=== PATIENT | female | born 1990 | race Hispanic/Latino ===

== ENCOUNTER 2017-06-22 20:43 | Emergency (ER) | payer OTHER ==
[2017-06-22 21:25] LABS: Urine Blood TRACE (NEG); Urine Glucose NEGATIVE (NEG); Urine Protein NEGATIVE (NEG); Urine pH 5.5 (5.0-7.0)
[2017-06-22 21:30] LABS: Absolute Lymphocytes (CBC) 2.5 K/uL (0.7-4.9); Absolute Monocytes 0.6 K/uL (0.1-1.3); Absolute Neutrophil 6.2 K/uL (1.8-8.0); Basophils % 0.5 % (0-1.3); Eosinophils % 0.8 % (0-4.4); Hematocrit 35.7 % (36.0-45.0); Lymphocytes % 26.2 % (15.3-44.8); MCH 23.9 pg (27.0-35.0); MCV 72.8 fL (80-100); MPV 8.1 fL (7.6-11.3); RBC Red Blood Cell Count 4.91 M/uL (3.86-4.86)
--- NOTE | 2017-06-22 21:48 | RAD REPORT ---
EXAM DESCRIPTION: US - Transvaginal OB - 06/22/2017 9:39 pm CLINICAL HISTORY: , vaginal bleeding COMPARISON: None. FINDINGS: A single gestational sac is seen within the uterus. Within the sac is a single pole with crown-rump length measuring 2 mm corresponding to 5 weeks 5 days gestational age. Cardiac activity was not identified, which is considered normal at this gestational age. Small inferiorly located subchorionic bleed is present measuring 6 x 2 mm. The right ovary was not well seen. Left ovary is normal in size, shape and echotexture with normal Do ppler flow. IMPRESSION: Early IUP findings are present.Embryonic cardiac activity is not yet seen, which is stil l considered normal at this early gestational age. Consider followup sonogram in 7-10 days. Small inferiorly located subchorionic bleed.
--- NOTE | 2017-06-22 22:32 | ER ---
Nurse's Notes [facility] Name: Ekta Bull Age: 26 yrs Sex: Female : 1990 Arrival Date: 06/22/2017 Time: 20:44 Bed 15 Private MD: Diagnosis: Threatened Presentation: 06/22 20:49 Presenting complaint: Patient states: Light spotting, pink in color that began today; lp1 noticed when wiping; Light pelvic cramping; Denies any N/V. Transition of care: patient was not received from another setting of care. Onset of symptoms was June 22, 2017. Care prior to arrival: None. 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 - Social history:: Smoking status: Patient/guardian denies using tobacco. Screenin:51 Abuse screen: Denies threats or abuse. Denies injuries from another. Nutritional lp1 screening: No deficits noted. Tuberculosis screening: No symptoms or risk factors identified. Fall Risk None identified. Assessment: 21:00 Obstetrical Assessment: General assessment: awake and alert, skin warm and dry, wh respirations even and unlabored, Patient reports vaginal spotting that started today. General: Appears in no apparent distress. comfortable, Behavior is calm, cooperative, appropriate for age. General: Behavior is calm, cooperative, appropriate for age. Pain: Complains of pain in suprapubic cramps Pain does not radiate. Pain began today. Neuro: Level of Consciousness is awake, alert, obeys commands, Oriented to person, place, time, situation. Cardiovascular: Denies chest pain, Capillary refill < 3 seconds. Respiratory: Airway is patent Respiratory effort is even, unlabored, Respiratory pattern is regular, symmetrical. GI: Abdomen is round non-distended, Abd is soft and non tender. : Reports vaginal spotting that started today. EENT: No signs and/or symptoms were reported regarding the EENT system. Derm: Skin is intact, Skin is pink, warm \T\ dry. normal. Musculoskeletal: Range of motion: intact in all extremities. 22:13 Reassessment: Patient and/or family updated on plan of care and expected duration. Pain ea level reassessed. Patient is alert, oriented x 3, equal unlabored respirations, skin warm/dry/pink. Patient denies pain at this time. 22:48 Reassessment: Patient and/or family updated on plan of care and expected duration. Pain ea level reassessed. Patient is alert, oriented x 3, equal unlabored respirations, skin warm/dry/pink. Discharge instructions given to patient, verbalized understanding of instructions. Vital Signs: 20:50 BP 129 / 70; Pulse 82; Resp 16; Temp 98.5(O); Pulse Ox 100% on R/A; Weight 102.06 kg; lp1 Height 5 ft. 5 in. (165.10 cm); Pain 0/10; 21:07 BP 121 / 60; Pulse 75; Resp 17; Pulse Ox 100% on R/A; wh 22:13 BP 118 / 63; Pulse 70; Resp 18; Pulse Ox 100% on R/A; Pain 0/10; ea 22:48 BP 120 / 68; Pulse 68; Resp 18 S; Temp 98.0(O); Pulse Ox 99% ; Pain 0/10; ea 20:50 Body Mass Index 37.44 (102.06 kg, 165.10 cm) lp1 Vitals: 22:47 Heart Tones 6 weeks . ea ED Course: 20:44 Patient arrived in ED. ds1 20:50 Triage completed. lp1 20:50 Arm band placed on right wrist. lp1 21:00 Janette Leal is Primary Nurse. wh 21:00 Benny Kyle MD is Attending Physician. gs 21:06 Patient has correct armband on for positive identification. Placed in gown. Bed in low wh position. Call light in reach. Side rails up X 1. Pulse ox on. NIBP on. 21:22 Inserted saline lock: 22 gauge in right antecubital area, using aseptic technique. wh Blood collected. 21:38 Ultrasound completed. Patient tolerated well. cy 21:39 Transvaginal OB US In Process Unspecified. EDMS 22:47 No provider procedures requiring assistance completed. IV discontinued, intact, ea bleeding controlled, No redness/swelling at site. Pressure dressing applied. Administered Medications: No medications were administered Point of Care Testing: Urine : 21:06 hCG Reading: Positive; Outcome: 22:31 Discharge ordered by MD. 22:47 Discharged to home ambulatory, with family. ea 22:47 Condition: improved 22:47 Discharge instructions given to patient, Instructed on discharge instructions, follow up and referral plans. medication usage, Demonstrated understanding of instructions, follow-up care, medications, Prescriptions given X 1. 22:53 Patient left the ED. ea Signatures: Dispatcher [employer] [facility] Deedee Bowers ds1 Chika Bermeo RN RN lp1 Ernestina Pruett RN RN ea [place], Winsy Benny Kyle MD MD Aditi Morales Corrections: (The following items were deleted from the chart) 21:06 21:05 Discharged to [facility] 22:49 22:47 Heart Tones pt under 12 weeks . jeremiah daniels 22:52 22:47 Heart Tones pt < 12 weeks . jeremiah daniels
--- NOTE | 2017-06-22 22:32 | EDPHYS ---
Physician Documentation [facility] Name: Ekta Bull Age: 26 yrs Sex: Female : 1990 Arrival Date: 06/22/2017 Time: 20:44 Bed 15 Private MD: ED Physician Benny Kyle HPI: 06/22 21:19 This 26 yrs old Female presents to ER via Ambulatory with complaints of gs Vaginal Bleeding, + Preg <12wks - Spotting. 21:19 The patient presents to the emergency department with vaginal bleeding, that is light. gs The estimated gestational age is 6 weeks. Associated signs and symptoms: Pertinent positives: abdominal pain, vaginal bleeding. The patient has not experienced similar symptoms in the past. 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 - Social history:: Smoking status: Patient/guardian denies using tobacco. ROS: 21:19 All other systems are negative. gs Exam: 21:19 Head/Face: Normocephalic, atraumatic. Eyes: Pupils equal round and reactive to light, gs extra-ocular motions intact. Lids and lashes normal. Conjunctiva and sclera are non-icteric and not injected. Cornea within normal limits. Periorbital areas with no swelling, redness, or edema. ENT: Nares patent. No nasal discharge, no septal abnormalities noted. Tympanic membranes are normal and external auditory canals are clear. Oropharynx with no redness, swelling, or masses, exudates, or evidence of obstruction, uvula midline. Mucous membranes moist. Neck: Trachea midline, no thyromegaly or masses palpated, and no cervical lymphadenopathy. Supple, full range of motion without nuchal rigidity, or vertebral point tenderness. No Meningismus. Chest/axilla: Normal chest wall appearance and motion. Nontender with no deformity. No lesions are appreciated. Cardiovascular: Regular rate and rhythm with a normal S1 and S2. No gallops, murmurs, or rubs. Normal PMI, no JVD. No pulse deficits. Respiratory: Lungs have equal breath sounds bilaterally, clear to auscultation and percussion. No rales, rhonchi or wheezes noted. No increased work of breathing, no retractions or nasal flaring. Abdomen/GI: Soft, non-tender, with normal bowel sounds. No distension or tympany. No guarding or rebound. No evidence of tenderness throughout. Back: No spinal tenderness. No costovertebral tenderness. Full range of motion. Skin: Warm, dry with normal turgor. Normal color with no rashes, no lesions, and no evidence of cellulitis. MS/ Extremity: Pulses equal, no cyanosis. Neurovascular intact. Full, normal range of motion. Neuro: Awake and alert, GCS 15, oriented to person, place, time, and situation. Cranial nerves II-XII grossly intact. Motor strength 5/5 in all extremities. Sensory grossly intact. Cerebellar exam normal. Normal gait. 21:19 Constitutional: The patient appears alert, awake. Vital Signs: 20:50 BP 129 / 70; Pulse 82; Resp 16; Temp 98.5(O); Pulse Ox 100% on R/A; Weight 102.06 kg; lp1 Height 5 ft. 5 in. (165.10 cm); Pain 0/10; 21:07 BP 121 / 60; Pulse 75; Resp 17; Pulse Ox 100% on R/A; wh 22:13 BP 118 / 63; Pulse 70; Resp 18; Pulse Ox 100% on R/A; Pain 0/10; ea 22:48 BP 120 / 68; Pulse 68; Resp 18 S; Temp 98.0(O); Pulse Ox 99% ; Pain 0/10; ea 20:50 Body Mass Index 37.44 (102.06 kg, 165.10 cm) lp1 MDM: 21:06 Patient medically screened. gs 21:19 Differential diagnosis: threatened Ab, inevitable Ab, ectopic . Differential gs diagnosis: complete Ab. Data reviewed: vital signs, nurses notes. Response to treatment: the patient's symptoms have markedly improved after treatment. 22:30 ED course: not having sig bleeding or pain can hold pelvic until sees her pcp. 06/22 21:06 Order name: Urine Dipstick--Ancillary (enter results); Complete Time: 21:56 rg2 06/22 21:06 Order name: Urine --Ancillary (enter results); Complete Time: 21:56 [facility] 06/22 21:06 Order name: Quantitative Hcg; Complete Time: 22:30 06/22 21:06 Order name: Abo/rh Typing; Complete Time: 22:30 gs 06/22 21:06 Order name: CBC with Diff; Complete Time: 21:56 06/22 22:12 Order name: ABO/RH no charge; Complete Time: 22:30 EDMS 06/22 21:06 Order name: IV Saline Lock; Complete Time: 21:22 06/22 21:06 Order name: Labs collected and sent; Complete Time: 21: 06/22 21:06 Order name: NPO; Complete Time: : 06/22 21:06 Order name: Urine Dipstick-Ancillary (obtain specimen); Complete Time: : 06/22 21:06 Order name: Transvaginal OB US; Complete Time: 21:56 gs Administered Medications: No medications were administered Point of Care Testing: Urine : 21: hCG Reading: Positive; wh Disposition: 06/22/17 22:31 Discharged to Home. Impression: Threatened . - Condition is Stable. - Discharge Instructions: Threatened Miscarriage. - Prescriptions for Vitamin 27- 0.8 mg Oral Tablet - take 1 tablet by ORAL route once daily; 60 tablet. - Medication Reconciliation Form, Thank You Letter, Antibiotic Education, Prescription Opioid Use form. - Follow up: Private Physician; When: 1 - 2 days; Reason: Re-evaluation by your physician. Signatures: Dispatcher [employer] Chika Tay, SYDNIE RN lp1 Ernestina Pruett RN RN ea Benny Kyle MD MD
== END 2017-06-22 22:53 | disposition home or self-care (01) ==
LOC: ER 20:43
DX: O20.0 Threatened abortion (principal); Z3A.01 Less than 8 weeks gestation of pregnancy
CPT/HCPCS: 36415; 76817; 81003; 81025; 84702; 85025; 86900; 86901; 99284

== ENCOUNTER 2018-07-04 23:02 | Emergency (ER) | payer OTHER ==
--- OUTSIDE RECORDS SUMMARY | 2018-07-04 23:05 | XMS REPORT | Clinical Summary ---
:1990 Author Organization [facility] Address [address] [place] [address] Care Team Providers Name Role Phone Ar Mary Primary Care Provider Unavailable Allergies No Known Allergies Medications Medication Sig Dispensed Refills Start Date End Date Status CITRANATAL GRAFF Take 1 tablet by 30 tablet 11 02/21/2018 Active 90-1-12-50 mouth daily. 9 sc-af-hgs-mg tablet sertraline Take 1 tablet 90 tablet 3 02/21/2018 Active (ZOLOFT) 50 MG (50 mg total) by 9 tablet mouth daily. progesterone Take 2 capsules 60 capsule 1 07/03/2017 (PROMETRIUM) 100 (200 mg total) 8 MG capsule by mouth daily for 60 days. CITRANATAL GRAFF Take 1 tablet by 30 tablet 11 07/19/2017 Discontinued 90-1-12-50 mouth daily. 8 rm-xd-yvf-mg tablet CITRANATAL GRAFF Take 1 tablet by 30 tablet 11 11/13/2017 Discontinued 90-1-12-50 mouth daily. 8 po-lq-ref-mg tablet ibuprofen Take 1 tablet 40 tablet 1 02/14/2018 (ADVIL,MOTRIN) 600 (600 mg total) 8 MG tablet by mouth every 6 (six) hours as needed (Cramping, Laceration or Incision Pain) for up to 30 days. HYDROcodone-acetam Take 1 tablet by 30 tablet 0 02/14/2018 inophen (NORCO) mouth every 4 8 5-325 mg per (four) hours as tablet needed for severe pain for up to 7 days. Max Daily Amount: 6 tablets Active Problems Problem Noted Date S/P repeat low transverse 02/12/2018 care, subsequent 07/19/2017 Encounters Date Type Specialty Care Team Description 04/05/2018 Visit Obstetrics and Adarsh Parada Encounter for Gynecology MD Emilee visit (Primary Dx) 03/21/2018 Telephone Obstetrics and Adarsh Parada Gynecology MD Emilee 02/26/2018 Office Visit Obstetrics and Adarsh Parada Encounter for Gynecology MD Emilee visit (Primary Dx) 02/26/2018 Telephone Obstetrics and India Guerin Gynecology ESPINOZA 02/26/2018 Telephone Obstetrics and Adarsh Parada Gynecology MD Emilee 02/21/2018 Office Visit Obstetrics and Adarsh Parada Encounter for Gynecology MD Emilee visit (Primary Dx) 02/12/2018 Surgery Obstetrics and Dilcia Valencia + Nakia Marsh MD BILATERAL TUBAL LIGATION 02/12/2018 Anesthesia Event Obstetrics and Jose A Quan MD 02/12/2018 - Hospital Encounter Obstetrics and Lisy Valenciagy 02/14/2018 Nakia Marsh MD 02/05/2018 Routine Obstetrics and Annie Dilcia GA: 38w1d Nakia Marsh MD 01/29/2018 Routine Obstetrics and Annie Dilcia GA: 37w1d Nakia Marsh MD 01/22/2018 Telephone Obstetrics and Nakia Garcia MA 01/22/2018 Telephone Obstetrics and Dilcia Valencia MD 01/19/2018 Routine Obstetrics and Annie Dilcia GA: 35w5d Nakia Marsh MD 01/03/2018 Routine Obstetrics and Annie Dilcia GA: 33w3d Nakia Marsh MD 12/20/2017 Routine Obstetrics and Annie Dilcia GA: 31w3d Nakia Marsh MD 12/18/2017 Telephone Obstetrics aparna Garcia, care, subsequent , third trimester (Primary Dx); Gynecology ESPINOZA Jefferson Unstable lie, single or unspecified fetus 12/18/2017 Orders Only Obstetrics and Jose, Nakia Jefferson MA 12/07/2017 Routine Obstetrics and Annie Dilcia GA: 29w4d Nakia Marsh MD 11/14/2017 Telephone Josette, Abnormal GTT Gynecology ESPINOZA Jefferson (glucose tolerance test) (Primary Dx) 11/13/2017 Routine Obstetrics and Annie Dilcia GA: 26w1d Nakia Marsh MD 10/16/2017 Routine Suyapa and Dilcia Valencia GA: 22w1d Nakia Marsh MD 10/16/2017 Ancillary Procedure Dilcia Watkins Nakia phillips MD subsequent , second trimester 10/16/2017 Telephone Dilcia Watkins MD 09/21/2017 Routine Obstetrics and Dilcia Valencia GA: 18w4d Nakia Marsh MD 09/21/2017 Ancillary Procedure Dilcia Watkins Nakia phillips MD subsequent , second trimester 08/21/2017 Telephone Reginald Mcfarland Gynecology 08/16/2017 Routine Obstetrics and Dilcia Valencia GA: 13w3d Nakia Marsh MD 08/08/2017 Telephone Josette [facility] [place] 08/01/2017 Orders Only Suyapa and Reginald Shay Visit for genetic screening (Primary Dx); Gynecology Screening for cystic fibrosis 07/31/2017 Orders Only Reginald Mcfarland Gynecology 07/24/2017 Orders Only Josette care, [facility] [place] subsequent , first trimester (Primary Dx) 07/24/2017 Telephone Nakia Finch [place] 07/19/2017 Initial Suyapa and Dilcia Valencia GA: 9w3d Nakia Marsh MD 07/04/2017 Telephone Reginald Mcfarland Gynecology 07/03/2017 Ancillary Procedure Suyapa and Dilcia Valencia at early Nakia Marsh MD stage 07/03/2017 Orders Only Dilcia Watkins MD after 07/03/2017 Immunizations Name Dates Previously Given Next Due INFLUENZA QUAD PF 12/20/2017 MMR 02/14/2018 (Deferred: ) Tdap 12/07/2017 Family History Medical History Relation Name Comments No Known Problems Mother Relation Name Status Comments Father Mother Alive Social History Tobacco Use Types Packs/Day Years Used Date Never Smoker Smokeless Tobacco: Never Used Tobacco Cessation: Counseling Given: No Alcohol Use Drinks/Week oz/Week Comments No Sex Assigned at Date Recorded Not on file Job Start Date Occupation Industry Not on file Not on file Not on file Travel History Travel Start Travel End No recent travel history available. Last Filed Vital Signs Vital Sign Reading Time Taken Blood Pressure 126/82 04/05/2018 3:52 PM [employer] Pulse 76 04/05/2018 3:52 PM [employer] Temperature 36.7 C (98.1 F) 04/05/2018 3:52 PM [employer] Respiratory Rate 16 02/14/2018 9:27 AM [employer] Oxygen Saturation 96% 02/12/2018 3:30 PM [employer] Inhaled Oxygen Concentration - - Weight 97.2 kg (214 lb 3.2 oz) 04/05/2018 3:52 PM [employer] Height 165.1 cm (5' 5") 04/05/2018 3:52 PM [employer] Body Mass Index 35.64 04/05/2018 3:52 PM [employer] Plan of Treatment Health Maintenance Due Date Last Done Comments CERVICAL CANCER SCREENING 12/29/2012 INFLUENZA VACCINE 10/18/2018 12/20/2017 Procedures Procedure Name Priority Date/Time Associated Comments Diagnosis HC COMPLETE BLD Routine 02/13/2018 6:50 AM Results for this COUNT W/AUTO DIFF [employer] procedure are in the results section. ANESTHESIA SPINAL Routine 02/12/2018 12:15 PM BLOCK [employer] Procedure Note - Jose A Quan MD - 02/12/2018 12:15 PM [employer] Spinal Block Performed by: Jose A Quan MD Authorized by: Jose A Quan MD Patient Location: OR Reason for Block: primary anesthetic Staff: Anesthesiologist: Jose A Quan MD Performed by: Anesthesiologist Preprocedure: patient identified, IV checked, site and side verified, risks and benefits discussed, procedure verified, surgical consent complete, patient position confirmed, monitors and equipment checked and pre-op evaluation complete Spinal Block: Patient Position: Sitting Prep: ChloraPrep Monitoring: Blood pressure monitoring, continuous pulse oximetry and heart rate Approach: Midline Interspace: L3-4 Injection Technique: Single injection Needle: Needle Type: Sprotte tip Needle Gauge: 24 G Assessment: Block assessment: No apparent complications and patient tolerated procedure well Post procedure: Patient returned to supine position and left lateral displacement Events: paresthesia Medications Administered Bupivacaine 0.75% PF (mL), 1.5 mL morPHINE 1 mg/mL PF, 0.3 mg + BILATERAL 02/12/2018 12:00 PM Repeat C/S TUBAL LIGATION [employer] Judy to assist RUBELLA AB IGG Routine 02/12/2018 10:25 AM Results for this [employer] procedure are in the results section. TYPE AND SCREEN Routine 02/12/2018 10:25 AM Results for this [employer] procedure are in the results section. SYPHILIS TREPONEMAL Routine 02/12/2018 10:25 AM Results for this IGG [employer] procedure are in the results section. HEPATITIS B SURFACE Routine 02/12/2018 10:25 AM Results for this ANTIGEN [employer] procedure are in the results section. HIV 1, 2 ANTIBODY Routine 02/12/2018 10:25 AM Results for this [employer] procedure are in the results section. HC COMPLETE BLD COUNT Routine 02/12/2018 10:25 AM Results for this W/AUTO DIFF [employer] procedure are in the results section. POC URINALYSIS Routine 02/05/2018 1:46 PM care, Results for this DIPSTICK [employer] third trimester procedure are in the results section. COMPREHENSIVE Routine 01/29/2018 2:07 PM care, Results for this METABOLIC PANEL [employer] third trimester procedure are in the results section. POC URINALYSIS Routine 01/29/2018 1:47 PM care, Results for this DIPSTICK [employer] third trimester procedure are in the results section. BETA STREP SCREEN Routine 01/19/2018 10:34 AM care, Results for this CULTURE WITH ESCOTO BROTH CDT third trimester procedure are in the results section. POC URINALYSIS Routine 01/03/2018 11:08 AM Infection of Results for this DIPSTICK CDT bladder in procedure are in in third the results trimester section. care, subsequent , second trimester POC URINALYSIS Routine 12/07/2017 3:55 PM care, Results for this DIPSTICK CDT subsequent procedure are in , second the results trimester section. GLUCOSE TOLERANCE Routine 11/21/2017 8:09 AM Abnormal GTT Results for this TEST, GESTATIONAL, 4 CDT (glucose tolerance procedure are in SPEC (100G) test) the results section. POC URINALYSIS Routine 11/13/2017 8:56 AM care, Results for this DIPSTICK CDT subsequent procedure are in , second the results trimester section. CBC WITH PLATELET AND Routine 11/13/2017 8:40 AM Screening for iron Results for this DIFFERENTIAL CDT deficiency anemia procedure are in the results section. GESTATIONAL DIABETES Routine 11/13/2017 8:40 AM care, Results for this SCREEN CDT subsequent procedure are in , second the results trimester section. POC URINALYSIS Routine 10/16/2017 4:40 PM care, Results for this DIPSTICK CDT subsequent procedure are in , second the results trimester section. US OB DETAIL Routine 10/16/2017 2:17 PM care, Results for this ANATOMY SINGLE OR CDT subsequent procedure are in FIRST GESTATION , second the results trimester section. MATERNAL SERUM SCREEN Routine 09/21/2017 4:43 PM care, Results for this AFP [facility] CDT subsequent procedure are in , second the results trimester section. POC URINALYSIS Routine 09/21/2017 4:26 PM Infection of Results for this DIPSTICK CDT bladder in procedure are in in third the results trimester section. care, subsequent , second trimester US OB DETAIL Routine 09/21/2017 3:28 PM care, Results for this ANATOMY SINGLE OR CDT subsequent procedure are in FIRST GESTATION , second the results trimester section. POC URINALYSIS Routine 08/16/2017 3:46 PM Infection of Results for this DIPSTICK CDT bladder in procedure are in in second the results trimester section. care, subsequent , second trimester COMPREHENSIVE Routine 08/16/2017 2:05 PM care, Results for this METABOLIC PANEL CDT subsequent procedure are in , second the results trimester section. PROGESTERONE LEVEL Routine 08/01/2017 3:07 PM care, Results for this CDT subsequent procedure are in , first the results trimester section. PROGESTERONE LEVEL Routine 07/19/2017 2:37 PM Low serum Results for this CDT progesterone procedure are in at early the results stage section. US Routine 07/03/2017 2:23 PM at early Results for this TRANSVAGINAL CDT stage procedure are in the results section. after 07/03/2017 Results CBC with platelet and differential (02/13/2018 6:50 AM [employer])Only the most recent of3 resultswithin the time period is included. WBC 10.51 4.50 - 11.00 k/uL [facility] RBC 3.51 (L) 4.20 - 5.50 m/uL [facility] HGB 10.6 (L) 12.0 - 16.0 g/dL [facility] HCT 31.0 (L) 37.0 - 47.0 % [facility] MCV 88.3 82.0 - 100.0 fL [facility] MCH 30.2 27.0 - 34.0 pg [facility] MCHC 34.2 31.0 - 37.0 g/dL [facility] RDW - SD 43.2 37.0 - 55.0 fL [facility] MPV 10.0 8.8 - 13.2 fL [facility] Platelet count 169 150 - 400 k/uL [facility] Nucleated RBC 0.00 /100 WBC [facility] Neutrophils 79.0 (H) 39.0 - 69.0 % [facility] Lymphocytes 13.5 (L) 25.0 - 45.0 % [facility] Monocytes 6.7 0.0 - 10.0 % [facility] Eosinophils 0.0 0.0 - 5.0 % [facility] Basophils 0.2 0.0 - 1.0 % [facility] Specimen Blood Performing Organization Address City/[facility] Phone Number [facility] AND [id number] [place] [id number] [place] [address] Syphilis treponemal IgG (02/12/2018 10:25 AM [employer]) Syphilis treponemal IgG Non-reactiveComment: Non-reactive [facility] Non-reactive: No HOSPITAL serological evidence of Syphilis infection Specimen Serum Performing Organization Address [place]/[facility] Phone Number [facility] DEPARTMENT OF PATHOLOGY AND [address] [place] [address] Rubella Ab IgG (02/12/2018 10:25 AM [employer]) Rubella IgG antibody NegativeComment: Patient is Negative [facility] presumed to not be immune to infection with Rubella Specimen Serum Performing Organization Address City/[facility]/Zipcode Phone Number [facility] DEPARTMENT OF PATHOLOGY AND [address] [place] [address] HIV 1, 2 antibody (02/12/2018 10:25 AM [employer]) HIV 1, 2 antibody Nonreactive Non-reactive [facility] Starting from June 16 2015, 4th generation HIV screening and confirmation assays are in use at [facility], consistent with the CDC-recommended algorithm. The screening test detects antibodies to HIV-1, HIV-2 and the p24 antigen. Positive screening results will be automatically reflexed to a HIV-1/HIV-2 differentiation assay. Indeterminant HIV-1 results will be further automatically reflexed to a nucleic acid test for detection of acute infection. Western blot will no longer be performed as a confirmation test. For a quick reference guide on the testing algorithm, please refer to: http://stacks.cdc.gov/view/cdc/95442. Specimen Blood Performing Organization Address [facility] Phone Number [facility] DEPARTMENT PATHOLOGY AND [address] [place] [address] Hepatitis B surface antigen (02/12/2018 10:25 AM [employer]) Hepatitis B surface Ag Nonreactive Non-reactive [facility] Specimen Blood Performing Organization Address [facility] Phone Number [facility] DEPARTMENT OF PATHOLOGY AND [address] [place] [address] [place] [address] HOSPITAL Type and screen (02/12/2018 10:25 AM [employer]) ABO grouping A [facility] Rh type POS [facility] Antibody screen NEG [facility] Specimen Blood Performing Organization Address [facility] Phone Number [facility] DEPARTMENT PATHOLOGY AND [address] [place] [address] POC urinalysis dipstick (02/05/2018 1:46 PM [employer])Only the most recent of8 resultswithin the time period is included. Color urine, POC Yellow Clarity urine, POC Clear Glucose urine, POC Negative Negative Bilirubin urine, POC Negative Negative Ketones urine, POC Negative Negative Specific gravity urine, POC </=1.005 1.005 - 1.030 Blood urine, POC Negative Negative pH urine, POC 6.5 5.0, 5.5, 6.0, 6.5, 7.0, 7.5, 8.0, 8.5 Protein urine, POC Negative Negative Urobilinogen urine, POC <2.0 <2.0 Nitrite urine, POC Negative Negative Leukocyte esterase urine, POC Negative Negative Specimen Urine Comprehensive metabolic panel (01/29/2018 2:07 PM [employer])Only the most recent of2 resultswithin the time period is included. Glucose 83 65 - 99 mg/dL [facility] Comment: [place] Fasting reference interval BUN, whole blood 4 (L) 7 - 25 mg/dL [facility] [place] Creatinine 0.51 0.50 - 1.10 mg/dL Ecelles Carson [place] EGFR Non-Afr. [place] 133 > OR=60 [facility] mL/min/1.73m2 [place] EGFR 154 > OR=60 [facility] mL/min/1.73m2 [place] BUN/creatinine ratio 8 6 - 22 (calc) Ecelles Carson [place] Sodium 139 135 - 146 mmol/L [facility]cell[facility] [place] Potassium 3.8 3.5 - 5.3 mmol/L [facility]cell[facility] Carson [place] Chloride 107 98 - 110 mmol/L Ecelles Carson [place] CO2 23 20 - 32 mmol/L Ecelles Carson [place] Calcium 8.7 8.6 - 10.2 mg/dL Ecelles Carson [place] Protein 5.8 (L) 6.1 - 8.1 g/dL Ecelles Carson [place] Albumin, S 3.5 (L) 3.6 - 5.1 g/dL [facility] Globulin, total 2.3 1.9 - 3.7 g/dL [facility] (calc) [place] Albumin/globulin ratio 1.5 1.0 - 2.5 (calc) Ecelles Carson [place] Total bilirubin 0.4 0.2 - 1.2 mg/dL [facility] Alkaline phosphatase 111 33 - 115 U/L Ecelles Carson [place] AST 18 10 - 30 U/L [facility] ALT 8 6 - 29 U/L Ecelles Carson [place] Specimen Blood Resulting Agency Comment Performing Organization Information: Site ID: [id number] Name: [facility] Address: [address] [place] [phone] Director: Aleida Michele Performing Organization Address City/State/Zipcode Phone Number [facility] [address] [address] Beta strep screen culture with escoto broth (01/19/2018 10:34 AM CDT) Group B streptococcus SEE NOTE (A) Ecelles Carson [place] Comment: STREPTOCOCCUS, GROUP B CULTURE MICRO NUMBER:[id number] TEST STATUS: FINAL SPECIMEN SOURCE: VAG/REC SPECIMEN QUALITY:ADEQUATE RESULT:Group B Streptococcus isolated Beta-hemolytic Streptococci are predictably susceptible to penicillin and other beta-lactams. Susceptibility testing not routinely performed. Note per CDC guidelines optimal recovery is achieved by swabbing both the lower vagina and rectum (through the anal sphincter) . Specimen Swab - Vaginal/rectal Resulting Agency Comment Performing Organization Information: Site ID: [id number] Name: [facility] Address: [address] [place] [phone] Director: Aleida Michele Performing Organization Address [facility] Phone Number [email or web address] [address] Glucose tolerance test, gestational, 4 spec (100g) (11/21/2017 8:09 AM CDT) Glucose, fasting 73 65 - 94 mg/dL Ecelles Carson [place] Glucose, 1 hour 129 <180 mg/dL Ecelles Carson [place] Glucose, 2 hour 100 <155 mg/dL Ecelles Carson [place] Glucose, 3 hour 96 <140 mg/dL Ecelles Carson [place] Comment Ecelles Carson [place] Comment: Carrillo/Coustan Criteria: Two or more values greater than the above reference intervals are suggestive of gestational diabetes. Resulting Agency Comment Performing Organization Information: Site ID: [facility] Name: [facility] Address: [address] [place] [phone] Director: Aleida Michele Performing Organization Address [facility] Phone Number [email or web address] [address] Gestational Diabetes Screen (11/13/2017 8:40 AM CDT) Glucose, gestational 149 (H) <135 mg/dL Ecelles Carson [place] screen (50g)-135 cutoff Comment: One hour value of > at=807 mg/dL indicates the need for a diagnostic 75 g dose 2-hour or 100 g dose 3-hour oral glucose tolerance test; patient fasting is required. Specimen Blood Narrative Performed At FASTING:YES [facility] FASTING: YES Resulting Agency Comment Performing Organization Information: Site ID: [facility] Name: [facility] Address: [address] [place] [address] Director: Aleida Michele Performing Organization Address [facility] Phone Number [email or web address] [place] [address] [place] [address] Ultrasound OB detail anatomy single or first gestation (10/16/2017 2:17 PM CDT)Only the most recent of2 resultswithin the time period is included. Narrative Performed At Presentation: [facility] Placenta: Anterior Weight: 1lb3oz 73% heart tones: 145bpm Performing Organization Address [facility] Phone Number [facility] [address] [place] [address] Maternal serum screen AFP [facility] (09/21/2017 4:43 PM CDT) Interpretation [facility] Comment: [facility] Screen negative for open NTD. Risk for ONTD <1 IN 5000 [facility] Alpha fetoprotein 25.6 ng/mL [facility] Mom for AFP 0.72 [facility] Comment [facility] Comment: [facility] This patient's KOTA (estimated date of delivery) was used to calculate the gestational age. Performance of maternal AFP provides a useful screening test for detection of open neural tube defects. The single AFP marker is not recommended for Down syndrome and other chromosomal abnormalities screening. Much greater sensitivity is achieved with multiple markers, such as AFP, hCG, unconjugated estriol, and/or dimeric inhibin A, as recommended by the [place] [employer].It should be noted that normal test results can never guarantee the of a normal baby and that 2-3% of newborns have some type of physical or mental defect, many of which are undetectable through any known diagnostic technique. Comment [facility] Comment: [facility] This is a screening test, not a diagnostic test. This risk assessment report is based in part on demographic data provided by the ordering physician. Please notify the laboratory promptly if any data are incorrect. For assistance with recalculations, please call your local [facility] laboratory. For assistance with interpretation of these results, please contact your Local [facility] genetic counselor or call [phone]). Interpretive Cutoffs Screen Positive for Open NTD: > or=2.50 adjusted MOM > or=1.90 adjusted MOM for Insulin- dependent diabetics > or=4.00 adjusted MOM for twins > or=3.50 adjusted MOM for Twins insulin- dependent diabetics > or=4.50 adjusted MOM for triplets Calc'd gestational age 18.6 weeks [facility] Maternal weight 222 lbs [facility] Estimated due date 02/18/2018 [facility] KOTA determined by ULTRASOUND [facility] Mother's ethnic origin [facility] Number of fetuses 1 [facility] Insulin depend diabetic NO [facility] Repeat specimen NOT GIVEN [facility] Hx of neural tube defects NOT GIVEN [facility] Prev down synd NOT GIVEN [facility] Donor egg NOT GIVEN [facility] Donor age: egg retrieval NOT GIVEN [facility] Specimen Blood Resulting Agency Comment Performing Organization Information: Site ID: [id number] Name: [facility] [facility] Address: [address] [place] [id number] Bam Carl Performing Organization Address [facility]/State/Zipcode Phone Number [email or web address] [address] [place] [id number] Progesterone level (08/01/2017 3:07 PM CDT)Only the most recent of2 resultswithin the time period is included. Progesterone 18.3 ng/mL [facility] Comment: [facility] [place] Reference Ranges for Progesterone, LC/MS/MS: Follicular Phase: < or=2.7 ng/mL Luteal Phase: 3.0-31.4 ng/mL Postmenopausal Phase: < or=0.2 ng/mL This test was developed and its analytical performance characteristics have been determined by [facility]. It has not been cleared or approved by FDA. This assay has been validated pursuant to the CLIA regulations and is used for clinical purposes. Specimen Blood Resulting Agency Comment Performing Organization Information: Site ID: [id number] Name: [facility], Address: [address] [place] [id number] Director: Elvira Wang MD,PhD,KATHRIN Performing Organization Address City/State/Zipcode Phone Number [facility] [address] [place] [address] [phone] [facility] [place] Transvaginal (07/03/2017 2:23 PM CDT) Narrative Performed At Gestational sac seen. [facility] Yolk sac seen. pole seen. pole measures: 7w1d KOTA by Ultrasound: 02/18/2018 heartbeat: 144bpm Bilateral adnexa normal. Performing Organization Address City/[facility] Phone Number [facility] [address] [place] [address] after 07/03/2017 Insurance Payer Benefit Plan / Group Subscriber ID Type Phone Address DORINA DORINA OPEN ACCESS/NETWORK xxxxxxxxxxx HMO Advance Directives Patient has advance care planning documents on file. For more information, please contact:Quinn [id number] [place] [address]
--- NOTE | 2018-07-05 00:21 | EDPHYS ---
Physician Documentation [facility] Name: Ekta Bull Age: 27 yrs Sex: Female : 1990 Arrival Date: 07/04/2018 Time: 23:03 Bed 13 Private MD: BRANDON RENEE ED Physician Ernesto Watson HPI: 07/04 23:40 This 27 yrs old Female presents to ER via Ambulatory with complaints of cp Foreign body In Vagina. 23:40 The patient presents with possible retained tampon. Onset: The symptoms/episode cp began/occurred today. Associated signs and symptoms: Pertinent positives: vaginal bleeding, Pertinent negatives: fever. 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 - Social history:: Smoking status: Patient/guardian denies using tobacco, Patient uses alcohol, occasionally. Patient/guardian denies using street drugs. - Ebola Screening: : No symptoms or risks identified at this time. ROS: 23:45 Constitutional: Negative for body aches, chills, fever, poor PO intake. cp 23:45 Eyes: Negative for injury, pain, redness, and discharge. cp 23:45 Respiratory: Negative for cough. 23:45 Abdomen/GI: Negative for abdominal pain. 23:45 : Positive for possible vaginal foreign body, Negative for urinary symptoms. 23:45 All other systems are negative. Exam: 23:50 Constitutional: The patient appears in no acute distress, alert, awake, non-toxic, well cp developed, well nourished. 23:50 Head/Face: Normocephalic, atraumatic. cp 23:50 Eyes: Periorbital structures: appear normal, Conjunctiva: normal, no exudate, no injection, Lids and lashes: appear normal, bilaterally. 23:50 Chest/axilla: Inspection: normal. 23:50 Cardiovascular: Rate: normal. 23:50 Respiratory: the patient does not display signs of respiratory distress, Respirations: normal, no use of accessory muscles, no retractions, no splinting, no tachypnea. 23:50 Abdomen/GI: Inspection: abdomen appears normal, Bowel sounds: active, all quadrants, Palpation: abdomen is soft and non-tender, in all quadrants. 23:50 : Pelvic Exam: External exam: is normal, Speculum exam: scant bleeding, no foreign body noted in vaginal vault. Vital Signs: 23:15 BP 154 / 76; Pulse 95; Resp 16 S; Temp 98.2(O); Pulse Ox 96% on R/A; Weight 106.59 kg bb (R); Height 5 ft. 5 in. (165.10 cm) (R); Pain 0/10; 23:15 Body Mass Index 39.11 (106.59 kg, 165.10 cm) bb MDM: 23:35 Patient medically screened. cp 07/05 00:00 Differential diagnosis: urinary tract infection, vaginosis, retained tampon. cp 00:20 Data reviewed: vital signs, nurses notes, and as a result, I will discharge patient. cp 00:20 Counseling: I had a detailed discussion with the patient and/or guardian regarding: the cp historical points, exam findings, and any diagnostic results supporting the discharge/admit diagnosis, to return to the emergency department if symptoms worsen or persist or if there are any questions or concerns that arise at home. Administered Medications: No medications were administered Disposition: 06:59 Co-signature as Attending Physician, Ernesto Watson MD I agree with the assessment and [facility] plan of care. Disposition: 07/05/18 00:20 Discharged to Home. Impression: Encounter for examination and observation for other specified reasons. - Condition is Stable. - Medication Reconciliation Form, Thank You Letter, Antibiotic Education, Prescription Opioid Use form. - Follow up: Private Physician; When: 1 - 2 days; Reason: if symptoms continue. - Problem is new. - Symptoms have improved. Signatures: Ernesto Watson MD MD cha Ballard, Brenda RN RN Chika Alonso RN RN lp1 Ernesto Patel PA PA cp Corrections: (The following items were deleted from the chart) 00:27 00:20 07/05/2018 00:20 Discharged to Home. Impression: Encounter for examination and lp1 observation for other specified reasons. Condition is Stable. Forms are Medication Reconciliation Form, Thank You Letter, Antibiotic Education, Prescription Opioid Use. Follow up: Private Physician; When: 1 - 2 days; Reason: if symptoms continue. Problem is new. Symptoms have improved. cp
--- NOTE | 2018-07-05 00:21 | ER ---
Nurse's Notes [facility] Name: Ekta Bull Age: 27 yrs Sex: Female : 1990 Arrival Date: 07/04/2018 Time: 23:03 Bed 13 Private MD: BRANDON RENEE Diagnosis: Encounter for examination and observation for other specified reasons Presentation: 07/04 23:14 Presenting complaint: Patient states: she thinks she has a tampon stuck in her vagina bb for the last couple of hours. Transition of care: patient was not received from another setting of care. Onset of symptoms was July 04, 2018. Risk Assessment: Do you want to hurt yourself or someone else? Patient reports no desire to harm self or others. Initial Sepsis Screen: Does the patient meet any 2 criteria? No. Patient's initial sepsis screen is negative. Does the patient have a suspected source of infection? No. Patient's initial sepsis screen is negative. Care prior to arrival: None. 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 - Social history:: Smoking status: Patient/guardian denies using tobacco, Patient uses alcohol, occasionally. Patient/guardian denies using street drugs. - Ebola Screening: : No symptoms or risks identified at this time. Screenin/18 00:15 Abuse screen: Denies threats or abuse. Denies injuries from another. Nutritional lp1 screening: No deficits noted. Tuberculosis screening: No symptoms or risk factors identified. Fall Risk None identified. Assessment: 07/04 23:30 General: Appears in no apparent distress. Behavior is appropriate for age. Pain: Denies lp1 pain. Neuro: No deficits noted. Cardiovascular: No deficits noted. Respiratory: No deficits noted. GI: No deficits noted. : Reports possible tampon in place. EENT: No deficits noted. Derm: Skin is pink, warm \T\ dry. Musculoskeletal: No deficits noted. Vital Signs: 23:15 BP 154 / 76; Pulse 95; Resp 16 S; Temp 98.2(O); Pulse Ox 96% on R/A; Weight 106.59 kg bb (R); Height 5 ft. 5 in. (165.10 cm) (R); Pain 0/10; 23:15 Body Mass Index 39.11 (106.59 kg, 165.10 cm) bb ED Course: 23:03 Patient arrived in ED. am2 23:04 BRANDON RENEE is Private Physician. am2 23:15 Triage completed. bb 23:15 Arm band placed on Patient placed in an exam room, on a stretcher, on pulse oximetry. bb 23:30 Patient has correct armband on for positive identification. Placed in gown. lp1 23:34 Ernesto Patel PA is PHCP. cp 23:34 Ernesto Watson MD is Attending Physician. cp 07/05 00:14 Chika Bermeo, RN is Primary Nurse. lp1 00:14 Assist provider with pelvic exam: Set up pelvic tray. Performed by Ernesto HOGUE lp1 Patient tolerated well. Patient did not have IV access during this emergency room visit. Administered Medications: No medications were administered Outcome: 00:20 Discharge ordered by MD. cp 00:27 Discharged to home ambulatory. lp1 00:27 Condition: good 00:27 Discharge instructions given to patient, Instructed on discharge instructions, follow up and referral plans. Demonstrated understanding of instructions, follow-up care. 00:27 Patient left the ED. lp1 Signatures: Ju Gillis RN RN bb Chika Bermeo, RN RN lp1 Ernesto Patel PA PA Karla Lora am2
== END 2018-07-05 00:27 | disposition home or self-care (01) ==
LOC: ER 23:02
DX: Z71.1 Person with feared health complaint in whom no diagnosis is made (principal)
CPT/HCPCS: 99283